=== PATIENT | male | born 1985 | race Caucasian/White ===

== ENCOUNTER 2017-11-13 15:52 | Inpatient (IN) | payer MEDICAID ==
[~2017-11-13] VITALS: Ht 180.3 cm; Wt 86.3 kg
[2017-11-13] MEDS ORDERED: HALOPERIDOL 5 MG TABLET PO PRN (18:00)
[2017-11-13 18:28] VITALS: BP 108/65
[2017-11-13] MEDS ORDERED: ONDANSETRON HCL 4 MG TABLET PO PRN (18:45)
[2017-11-13] MEDS ORDERED: CloNIDine HCL 0.1 MG TABLET PO PRN (18:45)
[2017-11-13] MEDS ORDERED: MAG HYDROX/AL HYDROX/SIMETH ES 30 ML SUSPENSION UDCUP PO PRN (18:45)
[2017-11-13] MEDS ORDERED: PETROLATUM,WHITE 71 GM JELLY TP PRN (18:45)
[2017-11-13] MEDS ORDERED: ACETAMINOPHEN 325 MG TABLET PO PRN (18:45)
[2017-11-13] MEDS ORDERED: LOPERAMIDE HCL 2 MG CAPSULE PO PRN (18:45)
[2017-11-13] MEDS ORDERED: DOCUSATE SODIUM 100 MG CAPSULE PO PRN (18:45)
[2017-11-13] MEDS ORDERED: MAGNESIUM HYDROXIDE SUSPENSION 30 ML UDCUP PO PRN (18:45)
[2017-11-13] MEDS ORDERED: NICOTINE 14 MG/24 HOUR PATCH TD PRN (18:45)
[2017-11-13] MEDS ORDERED: IBUPROFEN 400 MG TABLET PO PRN (18:45)
[2017-11-13] MEDS ORDERED: ALBUTEROL SULFATE HFA 90 MCG/PUFF 8 GM INHALER IH PRN (18:45)
[2017-11-13] MEDS: LORazepam 2 MG TABLET PO PRN (23:04)
[2017-11-14 00:07] VITALS: BP 106/69
[2017-11-14 08:10] VITALS: BP 111/60
[2017-11-14 08:48] LABS: BASOPHILS % (AUTO) 0.6 % (0.0-2.0); EOSINOPHILS % (AUTO) 2.3 % (1.0-6.0); HEMATOCRIT 39.7 % (41-53); HEMOGLOBIN 13.4 g/dL (13.5-17.5); LYMPHOCYTES % (AUTO) 45.7 % (22.0-44.0); MEAN CORPUSCULAR HEMOGLOBIN 29.9 pg (26.0-34.0); MEAN CORPUSCULAR HGB CONC 33.6 G/dL (31.0-37.0); MEAN CORPUSCULAR VOLUME 89 fL (80-100); MONOCYTES # (AUTO) 0.5 K/uL (0.1-1.0); MONOCYTES % (AUTO) 7.4 % (2.0-9.0); NEUTROPHILS # (AUTO) 2.9 K/uL (1.8-7.7); PLATELET COUNT (AUTO) 178 K/uL (150-450); RED BLOOD CELL COUNT(AUTO) 4.47 MIL/uL (4.50-5.90)
[2017-11-14 08:56] LABS: HEMOGLOBIN A1C 5.3 % (4.5-6.2)
[2017-11-14] MEDS: NICOTINE 14 MG/24 HOUR PATCH TD SCH (08:56)
[2017-11-14 09:31] LABS: ALANINE AMINOTRANSFERASE 20 U/L (12-78); ALBUMIN 3.3 g/dL (3.4-5.0); ALKALINE PHOSPHATASE 45 U/L (46-116); ANION GAP 7 mmol/L (8-16); ASPARTATE AMINOTRANSFERASE 15 U/L (15-37); BILIRUBIN,TOTAL 0.4 mg/dL (0.1-1.0); CALCIUM, TOTAL 8.5 mg/dL (8.8-10.5); CARBON DIOXIDE 27 mmol/L (22-29); CHLORIDE 107 mmol/L (98-107); CHOL/HDL RATIO 2.4 (4.2-7.3); CHOLESTEROL 139 mg/dL (131-200); CREATININE 0.74 mg/dL (0.60-1.30); FREE T4 (FREE THYROXINE) 0.98 ng/dL (0.76-1.46); GLOMERULAR FILTR. RATE CALC > 60 mL/min (>60); GLUCOSE,RANDOM 89 mg/dL (70-110); HDL CHOLESTEROL 58 mg/dL (40-60); LDL CHOL (CALC.) 75 mg/dL (0-130); POTASSIUM 4.5 mmol/L (3.5-5.1); SODIUM SERUM 141 mmol/L (136-145); THYROID STIMULATING HORMONE 0.37 uIU/mL (0.36-3.74); TOTAL PROTEIN, SERUM 6.1 g/dL (6.4-8.2); TRIGLYCERIDES 29 mg/dL (15-150); UREA NITROGEN, BLOOD 14 mg/dL (7-18)
[2017-11-14] MEDS: SERTRALINE HCL 50 MG TABLET PO SCH (11:51)
[2017-11-14] MEDS: PERPHENAZINE 4 MG TABLET PO SCH ×2 (13:00→16:03)
[2017-11-14 16:12] VITALS: BP 116/73
[2017-11-14] MEDS: LORazepam 2 MG TABLET PO PRN (16:56)
[2017-11-15 00:05] VITALS: BP 112/60
[2017-11-15] MEDS: ZOLPIDEM TARTRATE 10 MG TABLET PO PRN (00:08)
[2017-11-15] MEDS: LORazepam 2 MG TABLET PO PRN ×3 (06:58→20:45)
[2017-11-15] MEDS: PERPHENAZINE 4 MG TABLET PO SCH ×3 (08:13→16:10)
[2017-11-15] MEDS: NICOTINE 14 MG/24 HOUR PATCH TD SCH (08:13)
[2017-11-15] MEDS: SERTRALINE HCL 50 MG TABLET PO SCH (08:13)
[2017-11-15 08:15] VITALS: BP 122/69
[2017-11-15 16:06] VITALS: BP 103/71
[2017-11-15 20:45] VITALS: BP 113/71
[2017-11-16] MEDS: ZOLPIDEM TARTRATE 10 MG TABLET PO PRN ×2 (01:24→20:35)
[2017-11-16] MEDS: LORazepam 2 MG TABLET PO PRN ×4 (06:19→17:57)
[2017-11-16 06:22] VITALS: BP 110/71
[2017-11-16] MEDS: SERTRALINE HCL 50 MG TABLET PO SCH (07:54)
[2017-11-16] MEDS: PERPHENAZINE 4 MG TABLET PO SCH ×3 (07:54→16:56)
[2017-11-16] MEDS: NICOTINE 14 MG/24 HOUR PATCH TD SCH (07:55)
[2017-11-16 08:06] VITALS: BP 123/77
[2017-11-16 16:00] VITALS: BP 122/73
[2017-11-16] MEDS: GuaiFENesin/D-METHORPHAN [SUGAR-FREE] 200-20MG/10 ML SYRUP UDCUP PO PRN (17:58)
[2017-11-17 03:14] VITALS: BP 110/64
[2017-11-17] MEDS: GuaiFENesin/D-METHORPHAN [SUGAR-FREE] 200-20MG/10 ML SYRUP UDCUP PO PRN ×2 (04:07→11:22)
[2017-11-17] MEDS: LORazepam 2 MG TABLET PO PRN ×3 (06:37→16:25)
[2017-11-17] MEDS: PERPHENAZINE 4 MG TABLET PO SCH ×3 (08:14→16:20)
[2017-11-17] MEDS: NICOTINE 14 MG/24 HOUR PATCH TD SCH (08:14)
[2017-11-17] MEDS: SERTRALINE HCL 50 MG TABLET PO SCH ×2 (08:14→16:20)
[2017-11-17 08:49] VITALS: BP 115/67
[2017-11-17 16:06] VITALS: BP 110/66
[2017-11-17] MEDS: ZOLPIDEM TARTRATE 10 MG TABLET PO PRN (20:31)
[2017-11-18 02:00] VITALS: BP 120/78
[2017-11-18] MEDS: LORazepam 2 MG TABLET PO PRN ×4 (02:12→19:58)
[2017-11-18 08:26] VITALS: BP 122/76
[2017-11-18] MEDS: SERTRALINE HCL 50 MG TABLET PO SCH ×2 (08:28→16:02)
[2017-11-18] MEDS: PERPHENAZINE 4 MG TABLET PO SCH ×3 (08:28→16:02)
[2017-11-18] MEDS: NICOTINE 14 MG/24 HOUR PATCH TD SCH (08:28)
[2017-11-18 16:26] VITALS: BP 114/69
[2017-11-18] MEDS: GuaiFENesin/D-METHORPHAN [SUGAR-FREE] 200-20MG/10 ML SYRUP UDCUP PO PRN (17:15)
[2017-11-18] MEDS: ZOLPIDEM TARTRATE 10 MG TABLET PO PRN (21:00)
[2017-11-19 06:19] VITALS: BP 120/81
[2017-11-19] MEDS: LORazepam 2 MG TABLET PO PRN ×2 (07:12→11:20)
[2017-11-19 08:46] VITALS: BP 112/64
[2017-11-19] MEDS: NICOTINE 14 MG/24 HOUR PATCH TD SCH (09:49)
[2017-11-19] MEDS: SERTRALINE HCL 50 MG TABLET PO SCH (09:49)
[2017-11-19] MEDS: PERPHENAZINE 4 MG TABLET PO SCH ×2 (09:49→13:02)
[2017-11-19] MEDS ORDERED: TRIL4 PO (11:56)
[2017-11-19] MEDS ORDERED: SERT50TA12 PO (11:56)
== END 2017-11-19 13:23 | disposition home or self-care (01) | DRG 750 ==
LOC: B2S 17:56
PROVIDERS: ADMIT Psychiatry & Neurology Psychiatry; ATTEND Psychiatry & Neurology Psychiatry
DX: F25.1 Schizoaffective disorder, depressive type (principal); E83.51 Hypocalcemia; R45.851 Suicidal ideations; D64.9 Anemia, unspecified; F10.10 Alcohol abuse, uncomplicated; F15.10 Other stimulant abuse, uncomplicated; F32.9 Major depressive disorder, single episode, unspecified; Z59.0 Homelessness; Z91.5 Personal history of self-harm; Z71.41 Alcohol abuse counseling and surveillance of alcoholic; Z71.51 Drug abuse counseling and surveillance of drug abuser
CPT/HCPCS: 83036; 84439; 84443; 87081

== ENCOUNTER 2022-10-26 13:20 | Emergency (ER) | payer MEDICAID ==
[~2022-10-26] VITALS: Ht 180.3 cm; Wt 100.0 kg
[~2022-10-26 13:20] MED LIST: PERP4TAB33 PO; SERT-158 PO
[2022-10-26] MEDS ORDERED: ARIP10TA38 PO ×2 (13:53→14:55)
[2022-10-26] MEDS ORDERED: NALT50TA6 PO (13:53)
[2022-10-26] MEDS ORDERED: BUPR-72 PO (13:53)
[2022-10-26] MEDS ORDERED: IBUPROFEN 600 MG TABLET PO ONE (14:45)
[2022-10-26] MEDS ORDERED: IBUP-1492 PO (14:55)
[2022-10-26 15:51] VITALS: BP 121/83; PULSE 110; RESP 18
== END 2022-10-26 16:00 | disposition home or self-care (01) ==
LOC: EMS 13:20
DX: S49.92XA Unspecified injury of left shoulder and upper arm, initial encounter (principal); M25.512 Pain in left shoulder; F20.9 Schizophrenia, unspecified; F17.210 Nicotine dependence, cigarettes, uncomplicated; X58.XXXA Exposure to other specified factors, initial encounter; Y93.89 Activity, other specified; Y92.89 Other specified places as the place of occurrence of the external cause; Y99.8 Other external cause status
CPT/HCPCS: 99283

== ENCOUNTER 2022-12-22 00:28 | Emergency (ER) | payer MEDICAID ==
[~2022-12-22] VITALS: Ht 180.3 cm; Wt 110.0 kg
[~2022-12-22 00:28] MED LIST changes: +ARIP10TA38 PO; +BUPR-72 PO; +IBUP-1492 PO; +NALT50TA6 PO; -PERP4TAB33 PO; -SERT-158 PO
[2022-12-22 00:36] VITALS: BP 140/90; PULSE 69; RESP 17; TEMP 98.2
[2022-12-22] MEDS ORDERED: IBUP-1493 PO (01:06)
[2022-12-22] MEDS ORDERED: AMOX500C2 PO (01:06)
[2022-12-22] MEDS ORDERED: AMOXICILLIN TRIHYDRATE 250 MG CAPSULE PO ONE (01:15)
[2022-12-22] MEDS ORDERED: KETOROLAC TROMETHAMINE 30 MG/ML VIAL IM ONE (01:15)
== END 2022-12-22 01:29 | disposition home or self-care (01) ==
LOC: EMS 00:31
DX: K08.89 Other specified disorders of teeth and supporting structures (principal); F20.9 Schizophrenia, unspecified; F17.210 Nicotine dependence, cigarettes, uncomplicated; F19.90 Other psychoactive substance use, unspecified, uncomplicated; Z98.890 Other specified postprocedural states
CPT/HCPCS: 99283; 96372; J1885

== ENCOUNTER 2023-06-03 19:58 | Emergency (ER) | payer MEDICAID ==
[~2023-06-03] VITALS: Ht 180.3 cm; Wt 90.9 kg
[~2023-06-03 19:58] MED LIST changes: +AMOX500C2 PO; +IBUP-1493 PO; +NALT50TA33 PO; -NALT50TA6 PO
[2023-06-03 22:26] VITALS: BP 144/96; PULSE 87; RESP 17; TEMP 98.4
== END 2023-06-03 23:08 | disposition home or self-care (01) ==
LOC: EMS 19:59
DX: F20.9 Schizophrenia, unspecified (principal); F17.210 Nicotine dependence, cigarettes, uncomplicated; Z71.51 Drug abuse counseling and surveillance of drug abuser
CPT/HCPCS: 99281; Z7502

== ENCOUNTER 2023-11-01 20:30 | Inpatient (IN) | payer MEDICAID ==
[~2023-11-01] VITALS: Ht 182.9 cm; Wt 90.9 kg
[~2023-11-01 20:30] MED LIST changes: +BUPR-433 PO; -BUPR-72 PO
[2023-11-01] MEDS ORDERED: ZOLPIDEM TARTRATE 10 MG TABLET PO PRN (23:45)
[2023-11-01] MEDS ORDERED: HALOPERIDOL 5 MG TABLET PO PRN (23:45)
[2023-11-02 02:43] VITALS: BP 109/55; PULSE 80; RESP 18; TEMP 97.7; O2SAT 99
[2023-11-02 08:23] LABS: BASOPHILS % (AUTO) 0.5 % (0.0-2.0); EOSINOPHILS % (AUTO) 2.4 % (1.0-6.0); HEMATOCRIT 37.9 % (41-53); HEMOGLOBIN 12.7 g/dL (13.5-17.5); LYMPHOCYTES # (AUTO) 3.1 K/uL (1.0-4.8); LYMPHOCYTES % (AUTO) 39.7 % (22.0-44.0); MEAN CORPUSCULAR HEMOGLOBIN 28.9 pg (26.0-34.0); MEAN CORPUSCULAR HGB CONC 33.6 G/dL (31.0-37.0); MEAN CORPUSCULAR VOLUME 86 fL (80-100); MONOCYTES # (AUTO) 0.7 K/uL (0.1-1.0); MONOCYTES % (AUTO) 9.2 % (2.0-9.0); NEUTROPHILS # (AUTO) 3.8 K/uL (1.8-7.7); NEUTROPHILS % (AUTO) 48.2 % (40.0-70.0); PLATELET COUNT (AUTO) 233 K/uL (150-450); RED BLOOD CELL COUNT(AUTO) 4.39 MIL/uL (4.50-5.90); RED CELL DISTRIBUTION WIDTH 15.1 % (11.5-14.5); WHITE BLOOD COUNT (AUTO) 7.8 K/uL (4.5-11.0)
[2023-11-02 08:36] VITALS: BP 114/70; PULSE 75; RESP 18; TEMP 98.6; O2SAT 97
[2023-11-02 08:36] LABS: GLUCOMETER DEV NAME(LOC) POC.BV; POC SARS-COV2 AG, FIA NEGATIVE (NEGATIVE)
[2023-11-02 08:48] LABS: ALCOHOL, BLOOD (SERUM) < 3 mg/dL (0-10)
[2023-11-02 08:49] LABS: ALANINE AMINOTRANSFERASE 23 U/L (12-78); ALBUMIN 3.1 g/dL (3.4-5.0); ALKALINE PHOSPHATASE 71 U/L (46-116); ANION GAP 10 mmol/L (8-16); ASPARTATE AMINOTRANSFERASE 23 U/L (15-37); BILIRUBIN,TOTAL 0.4 mg/dL (0.1-1.0); CARBON DIOXIDE 28 mmol/L (22-29); CHLORIDE 100 mmol/L (98-107); CHOL/HDL RATIO 2.4 (4.2-7.3); CHOLESTEROL 153 mg/dL (131-200); CREATININE 0.85 mg/dL (0.60-1.30); FREE T4 (FREE THYROXINE) 1.12 ng/dL (0.76-1.46); GLOMERULAR FILTR. RATE CALC > 60 mL/min (>60); GLUCOSE,RANDOM 110 mg/dL (70-110); HDL CHOLESTEROL 65 mg/dL (40-60); LDL CHOL (CALC.) 77 mg/dL (0-130); POTASSIUM 3.6 mmol/L (3.5-5.1); SODIUM SERUM 138 mmol/L (136-145); T4 (THYROXINE) 6.4 mcg/dL (4.7-13.3); THYROID STIMULATING HORMONE 1.77 uIU/mL (0.36-3.74); TOTAL PROTEIN, SERUM 6.7 g/dL (6.4-8.2); TRIGLYCERIDES 54 mg/dL (15-150); UREA NITROGEN, BLOOD 19 mg/dL (7-18)
[2023-11-02] MEDS ORDERED: CloNIDine HCL 0.1 MG TABLET PO PRN (13:30)
[2023-11-02] MEDS ORDERED: MAG HYDROX/ALUMINUM HYD/SIMETH ES 30 ML SUSPENSION UDCUP PO PRN (13:30)
[2023-11-02] MEDS ORDERED: PETROLATUM,WHITE 28 GM JELLY TP PRN (13:30)
[2023-11-02] MEDS ORDERED: GuaiFENesin/D-METHORPHAN [SUGAR-FREE] 200-20MG/10 ML SYRUP UDCUP PO PRN (13:30)
[2023-11-02] MEDS ORDERED: ACETAMINOPHEN 325 MG TABLET PO PRN (13:30)
[2023-11-02] MEDS ORDERED: ONDANSETRON HCL 4 MG TABLET PO PRN (13:30)
[2023-11-02] MEDS ORDERED: LOPERAMIDE HCL 2 MG CAPSULE PO PRN (13:30)
[2023-11-02] MEDS ORDERED: NICOTINE 14 MG/24 HOUR PATCH TD PRN (13:30)
[2023-11-02] MEDS ORDERED: ALBUTEROL SULFATE HFA 90 MCG/PUFF 8 GM INHALER IH PRN (13:30)
[2023-11-02] MEDS ORDERED: MAGNESIUM HYDROXIDE SUSPENSION 30 ML UDCUP PO PRN (13:30)
[2023-11-02] MEDS ORDERED: DOCUSATE SODIUM 100 MG CAPSULE PO PRN (13:30)
[2023-11-02] MEDS ORDERED: IBUPROFEN 400 MG TABLET PO PRN (13:30)
[2023-11-02] MEDS ORDERED: BENZ-247 PO (16:41)
[2023-11-02] MEDS ORDERED: PERP2TAB PO (16:41)
[2023-11-02] MEDS ORDERED: ASEN10TA10 PO (16:44)
[2023-11-02 18:24] VITALS: BP 118/76; PULSE 76; RESP 17; TEMP 98.2; O2SAT 98
[2023-11-02] MEDS: BENZTROPINE MESYLATE 1 MG TABLET PO SCH (21:00)
[2023-11-03 04:11] VITALS: BP 122/86; PULSE 67; RESP 18; TEMP 98; O2SAT 98
[2023-11-03 07:23] VITALS: BP 145/76; PULSE 85; RESP 18
[2023-11-03] MEDS: LORazepam 2 MG TABLET PO PRN (07:25)
[2023-11-03 08:15] LABS: HEMOGLOBIN A1C 5.7 % (3.8-5.6)
[2023-11-03 08:19] VITALS: BP 145/76; PULSE 91; RESP 16; TEMP 96.8; O2SAT 100
[2023-11-03 08:33] LABS: CHOL/HDL RATIO 2.4 (4.2-7.3); THYROID STIMULATING HORMONE 0.78 uIU/mL (0.36-3.74)
[2023-11-03] MEDS ORDERED: PERPHENAZINE 2 MG TABLET PO SCH (09:00)
[2023-11-03] MEDS: PERPHENAZINE 8 MG TABLET PO SCH (09:02)
[2023-11-03] MEDS ORDERED: HALOPERIDOL LACTATE 5 MG/ML VIAL ONE (13:00)
[2023-11-03] MEDS ORDERED: DiphenhydrAMINE HCL 50 MG/ML VIAL ONE (13:00)
[2023-11-03] MEDS ORDERED: LORazepam 2 MG/ML VIAL ONE (13:00)
[2023-11-03] MEDS: LORazepam 2 MG/ML VIAL IM ONE (13:45)
[2023-11-03] MEDS: HALOPERIDOL LACTATE 5 MG/ML VIAL IM ONE (13:46)
[2023-11-03] MEDS: DiphenhydrAMINE HCL 50 MG/ML VIAL IM ONE (13:46)
[2023-11-04 08:44] VITALS: RESP 18
[2023-11-04] MEDS: PERPHENAZINE 2 MG TABLET PO SCH (16:00)
[2023-11-04 19:46] VITALS: PULSE 98
[2023-11-04 21:03] VITALS: BP 148/80; PULSE 108; RESP 19; TEMP 97; O2SAT 100
[2023-11-05 09:54] VITALS: BP 102/64; PULSE 99; RESP 18; TEMP 97.9; O2SAT 98
[2023-11-05] MEDS ORDERED: ASEN10TA14 SL (10:57)
[2023-11-05] MEDS ORDERED: BENZ-247 PO (10:57)
[2023-11-05] MEDS ORDERED: PERP2TAB PO (10:57)
== END 2023-11-05 12:30 | disposition home or self-care (01) | DRG 750 ==
LOC: B2S 23:32
PROVIDERS: ADMIT Psychiatry & Neurology Child & Adolescent Psychiatry; ATTEND Psychiatry & Neurology Child & Adolescent Psychiatry
PROC: GZ52ZZZ Individual Psychotherapy, Cognitive (ICD-10-PCS; principal; 2023-11-02)
PROC: GZHZZZZ Group Psychotherapy (ICD-10-PCS; 2023-11-02)
DX: F25.1 Schizoaffective disorder, depressive type (principal); I95.9 Hypotension, unspecified; R45.851 Suicidal ideations; F10.10 Alcohol abuse, uncomplicated; F41.9 Anxiety disorder, unspecified; Z20.822 Contact with and (suspected) exposure to COVID-19; G89.29 Other chronic pain; I10 Essential (primary) hypertension; G47.00 Insomnia, unspecified; M54.9 Dorsalgia, unspecified; Z79.899 Other long term (current) drug therapy
CPT/HCPCS: 80053; 80061; 83036; 84436; 84439; 84443; 85025; G0480; J1200; J1630; J2060